=== PATIENT | male | born 1990 | race Caucasian/White ===

== ENCOUNTER 2019-07-13 15:10 | Emergency (ER) | payer OTHER ==
[~2019-07-13] VITALS: Ht 182.9 cm; Wt 86.2 kg
[2019-07-13 15:25] VITALS: BP 135/72
--- NOTE | 2019-07-13 15:34 | PHYS DOC ---
Adult General Chief Complaint Chief Complaint: RING REMOVAL HPI HPI Patient is a 28 year old male who presents with a ring stuck on his left ring finger. The rings been stuck on their an unknown amount of days. The patient told told me 12 days. He then told me to 8 days. He told the nurse 5 days. The patient has no other complaints. Review of Systems Review of Systems Constitutional: Denies fever or chills [] Eyes: Denies change in visual acuity, redness, or eye pain [] HENT: Denies nasal congestion or sore throat [] Respiratory: Denies cough or shortness of breath [] Cardiovascular: No additional information not addressed in HPI [] GI: Denies abdominal pain, nausea, vomiting, bloody stools or diarrhea [] : Denies dysuria or hematuria [] Musculoskeletal: Denies back pain or joint pain [] Integument: Reports Ring stuck on Left ring finger. Neurologic: Denies headache, focal weakness or sensory changes [] Endocrine: Denies polyuria or polydipsia [] Complete systems were reviewed and found to be within normal limits, except as documented in this note. Physical Exam Physical Exam Constitutional: Well developed, well nourished, no acute distress, non-toxic appearance. [] HENT: Normocephalic, atraumatic, bilateral external ears normal, oropharynx moist, no oral exudates, nose normal. [] Eyes: PERRLA, EOMI, conjunctiva normal, no discharge. [] Skin: The ring is stuck on the left ring finger. Skin is edematous around the ring. Neurologic: Alert and oriented X 3, normal motor function, normal sensory function, no focal deficits noted. [] Psychologic: Affect normal, judgement normal, mood normal. [] Current Patient Data Vital Signs Vital Signs Date Time Temp Pulse Resp B/P (MAP) Pulse Ox O2 Delivery O2 Flow Rate FiO2 07/13/19 15:25 98.6 94 16 135/72 (93) 98 Room Air 98.6 EKG EKG [] Radiology/Procedures Radiology/Procedures [] Course & Med Decision Making Course & Med Decision Making Pertinent Labs and Imaging studies reviewed. (See chart for details) The ring is made out of plastic and marijuana. Will get a ring cutter and cut the ring. The ring was cut off with a ring cutter was no complications. The ring was then removed from the finger. The ring as it is made out of plastic and marijuana was given to security with patient permission for proper disposal. During the procedure the patient stated that he has felt like shooting himself in the head for quite some time. The patient is currently in inpatient treatment at [facility]. He was transported here from [facility] for this procedure. Mom will transport him back to the facility for further treatment. Dragon Disclaimer Dragon Disclaimer This electronic medical record was generated, in whole or in part, using a voice recognition dictation system. Departure Departure Impression: Primary Impression: Encounter for medical screening examination Disposition: HOME, SELF-CARE Condition: STABLE Referrals: NO PCP (PCP) Patient Instructions: Medical Screening Exam Additional Instructions: Thank you for visiting [facility]. We appreciate you trusting us with your care. If any additional problems come up don't hesitate to return to visit us. Please follow up with your primary care provider so they can plan additional care if needed and know about the problem that you had. If symptoms worsen come back to the Emergency Department. Any concerning symptoms that start such as chest pain, shortness of air, weakness or numbness on one side of the body, running high fevers or any other concerning symptoms return to the ER. JACY TABARES APRN Jul 13, 2019 15:34
== END 2019-07-13 15:52 | disposition home or self-care (01) ==
LOC: ER 15:10
DX: S60.455A Superficial foreign body of left ring finger, initial encounter (principal); X58.XXXA Exposure to other specified factors, initial encounter; Y93.89 Activity, other specified; Y92.89 Other specified places as the place of occurrence of the external cause; Y99.8 Other external cause status
CPT/HCPCS: 99284